=== PATIENT | male | born 1995 | race American Indian/Alaskan Native ===

== ENCOUNTER 2022-06-13 14:28 | Emergency (ER) | payer SELFPAY ==
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
[2022-06-13] MEDS ORDERED: SODIUM CHLORIDE 0.9% 1000 ML 1,000 ML IV ONE (15:55)
[2022-06-13] MEDS ORDERED: ONDANSETRON 4 MG/2 ML INJ IV ONE (15:55)
[2022-06-13] MEDS ORDERED: MORPHINE 2 MG/1 ML INJ IV ONE ×2 (16:00→19:57)
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
[2022-06-13 16:06] LABS: Basophils % (Auto) 0.4 % (0.0-1.8); Eosinophils % (Auto) 0.1 % (0.0-4.3); Hematocrit 46.8 % (35.5-45.6); Hemoglobin 15.8 gm/dl (11.8-15.2); Lymphocytes # (Auto) 1.2 K/mm3 (1.2-5.4); Mean Corpuscular HGB Conc 34 % (32-34); Mean Corpuscular Volume 100 fl (84-94); Monocytes # (Auto) 0.4 K/mm3 (0.0-0.8); Monocytes % (Auto) 4.7 % (0.0-7.3); Platelet Count 243 K/mm3 (140-440); Red Blood Count 4.71 M/mm3 (3.65-5.03)
[2022-06-13 16:19] LABS: BUN/Creatinine Ratio 10; Blood Urea Nitrogen 11 mg/dL (9-20); Calcium 10.3 mg/dL (8.4-10.2); Hemolysis Index 21
[2022-06-13 16:22] LABS: INR 0.98 (0.87-1.13); Partial Thromboplastin Time 30.8 Sec. (24.2-36.6)
[2022-06-13 20:33] VITALS: BP 133/85
== END 2022-06-13 20:31 | disposition home or self-care (01) ==
LOC: ED 14:28
DX: S98.912A Complete traumatic amputation of left foot, level unspecified, initial encounter (principal); W34.00XA Accidental discharge from unspecified firearms or gun, initial encounter; Y93.89 Activity, other specified; Y92.89 Other specified places as the place of occurrence of the external cause; Y99.8 Other external cause status
CPT/HCPCS: 29515; 36415; 73630; 80048; 85025; 85610; 85730; 96361; 96365; 96375; 96376; 99284; J0690; J2270; J2405; J7030